=== PATIENT | female | born 1940 | race Caucasian/White ===

== ENCOUNTER → 2016-11-02 | Outpatient (CLI) | payer MEDICARE, OTHER | LOC: RAD 09:07 | PROVIDERS: ATTEND Surgery | DX: R13.10 Dysphagia, unspecified (principal) | CPT/HCPCS: 74220 ==

== ENCOUNTER 2016-11-07 06:51 | Day surgery (SDC) | payer MEDICARE, OTHER ==
[2016-11-07] VITALS (9 sets, daily range): BP systolic 165–197; BP diastolic 71–108
[~2016-11-07] VITALS: Ht 152.4 cm; Wt 65.0 kg
[~2016-11-07 06:51] MED LIST: LACTATED RINGERS 1,000 ML IV SCH; SODIUM CHLORIDE FLUSH 3 ML SYR IV PRN
[2016-11-07] MEDS ORDERED: SIMETHICONE 40 MG/0.6 ML (MYLICON DROPS) ORAL SYRINGE ONE (06:54)
[2016-11-07] MEDS ORDERED: LIDOCAINE 4% TOPICAL 4.5 ML SYR ONE (06:54)
[2016-11-07] MEDS ORDERED: ALFENTANIL 500 MCG/ML (ALFENTA) 5 ML AMP IV ONE (08:03)
[2016-11-07] MEDS ORDERED: LIDOCAINE 2% BOLUS 100 MG/5 ML (XYLOCAINE) SYRINGE ONE (08:03)
[2016-11-07] MEDS ORDERED: MIDAZOLAM 2 MG/2 ML (VERSED) VIAL ONE (08:03)
[2016-11-07] MEDS ORDERED: PROPOFOL 20 ML IV ONE (08:03)
[2016-11-07] MEDS ORDERED: lisINopril 40 MG (PRINIVIL) TABLET PO ONE (09:25)
--- NOTE | 2016-11-07 09:35 | NUR ---
ELEVATED BLOOD PRESSURE REPORTED TO Marcus ARNOLD CRNA. ZACHARIAH INFORMED THAT PATIENT TAKES AM BLOOD PRESSURE MEDICATIONS AT HOME. NEW ORDER RECEIVED. SEE EMAR.
== END 2016-11-07 11:37 | disposition home or self-care (01) ==
LOC: ASC 06:51
PROVIDERS: ATTEND Surgery
DX: R13.19 Other dysphagia (principal)
CPT/HCPCS: 43239; 88305; 88312; A9270; J2250; J7120

== ENCOUNTER → 2016-11-23 | Outpatient (CLI) | payer MEDICARE, OTHER ==
[~2016-11-23] MED LIST changes: -LACTATED RINGERS 1,000 ML IV SCH; -SODIUM CHLORIDE FLUSH 3 ML SYR IV PRN; +methylPREDNISolone 80 MG/ML (DEPO MEDROL) VIAL IM ONE
== END ==
LOC: PMC 11:52
PROVIDERS: ATTEND Family Medicine
PROC: 3E0R33Z Introduction of Anti-inflammatory into Spinal Canal, Percutaneous Approach (ICD-10-PCS; principal; 2016-11-23)
DX: M54.6 Pain in thoracic spine (principal)

== ENCOUNTER → 2016-12-12 | Outpatient (CLI) | payer MEDICARE, OTHER | LOC: LAB 14:44 | PROVIDERS: ATTEND Family Medicine | DX: E03.8 Other specified hypothyroidism (principal) | CPT/HCPCS: 36415; 84443 ==

== ENCOUNTER → 2017-01-22 | Outpatient (REF) | payer MEDICARE, OTHER ==
[~2017-01-22] MED LIST changes: +ALPR.25T PO; +ASPI-860 PO; +ATOR20TA PO; +BUSP10TA95 PO; +CHOL100048 PO; +CTLP20T PO; +FOSAMAX; +HYDR-3702 PO; +LAMO150T PO; +LEVO125T6 PO; +LORA1TAB PO; +MEMA10TA PO; +MIRT15TA98 PO; +MULT1CAP27 PO; +NF-LISIN40 PO; +OMEP20CA12 PO; +OXYC1TAB87 PO; -methylPREDNISolone 80 MG/ML (DEPO MEDROL) VIAL IM ONE
== END ==
LOC: LAB 13:55
PROVIDERS: ATTEND Nurse Practitioner Family
DX: R35.0 Frequency of micturition (principal)
CPT/HCPCS: 87088

== ENCOUNTER → 2017-01-22 | Outpatient (CLI) | payer MEDICARE, OTHER ==
--- NOTE | 2017-01-22 18:00 | Diagnostic Imaging Report ---
INDICATION: Left-sided back pain, osteoporosis. TECHNIQUE: Patient received 24.2 mCi technetium 99m MDP, whole body planar imaging then accomplished. COMPARISON: While I have no previous for direct comparison, the study can be interpreted in correlation with the thoracic spinal CT of July 17, 2016. FINDINGS: There is uptake associated with a treated chronic compression fracture at T7. Some mild uptake involving the T6 vertebral body immediately above with the prior CT showing a slight superior endplate concavity at that level. That injury may be subacute. The remaining levels appeared unremarkable. There are arthritic changes involving right greater than left hips, the bilateral knees, ankles, and shoulders. IMPRESSION: Uptake associated with the treated midthoracic compression deformity as well as some mild uptake at the level immediately above which showed slight superior endplate concavity on earlier CT. This level is untreated and may reflect a subacute fracture. Otherwise, arthritic changes in the spine and long bones noted. No appreciable rib fracture. Dictated by: Dictated on workstation # [id number]
== END ==
LOC: RAD 11:04
PROVIDERS: ATTEND Family Medicine
DX: M81.0 Age-related osteoporosis without current pathological fracture (principal); M54.6 Pain in thoracic spine
CPT/HCPCS: 78306; A9503

== ENCOUNTER 2017-02-25 11:06 | Emergency (ER) | payer MEDICARE, OTHER ==
[~2017-02-25] VITALS: Ht 152.4 cm; Wt 67.5 kg
--- NOTE | 2017-02-25 12:35 | Diagnostic Imaging Report ---
INDICATION: Cough and weakness for one week. FINDINGS: Frontal and lateral views of the chest demonstrates the lungs to be clear. The heart size and vascularity are normal. There is calcification of the aorta. Previous kyphoplasty changes are present. IMPRESSION: There are no acute findings. Dictated by: Dictated on workstation # [id number]
[2017-02-25 13:06] LABS: BASOPHILS % (AUTO) 1 % (0-2); EOSINOPHILS # (AUTO) 0.4 10^3uL; EOSINOPHILS % (AUTO) 4 % (0-4); LYMPHOCYTES # (AUTO) 1.9 X10^3; MEAN CORPUSCULAR HEMOGLOBIN 28.2 PG (26.0-34.0); MEAN CORPUSCULAR HGB CONC 34.8 g/dL (31.0-37.0); MEAN CORPUSCULAR VOLUME 81 FL (80-100); MEAN PLATELET VOLUME 10.3 FL (6.0-9.5); MONOCYTES # (AUTO) 0.6 X10^3; MONOCYTES % (AUTO) 5 % (3-11); NEUTROPHILS # (AUTO) 7.6 X10^3; NEUTROPHILS % (AUTO) 71 % (51-67); PLATELET COUNT 263 10^3uL (150-450); WHITE BLOOD COUNT 10.57 10^3uL (4.0-11.0)
[2017-02-25 13:09] LABS: BILIRUBIN,URINE Negative (Negative); CLARITY,URINE Clear; COLOR,URINE Yellow; GLUCOSE, URINE (UA) Negative (Negative); LEUKOCYTE ESTERASE ,URINE 2+ (Negative); PH,URINE 5.5 (5.0 - 8.0); UROBILINOGEN,URINE 0.2 mg/dL (0.2-1.0)
[2017-02-25 13:18] LABS: ALBUMIN 4.1 g/dL (3.4-5.0); ALKALINE PHOSPHATASE 149 U/L (38-126); ANION GAP 12.2 MEQ/L (3-15); BUN/CREATININE RATIO 21 (10-20); CALCULATED IONIZED CALCIUM 4.1 mg/dL (3.8-4.6); CREATINE KINASE 41 U/L (30-135); TOTAL PROTEIN 7.2 g/dL (6.4-8.5)
[2017-02-25 13:18] LABS: CALCIUM OXALATE CRYSTALS,UR 4+ /HPF; RBC,URINE 0-2 /HPF; URINE CENTRIFUGED VOLUME 12 mL
[2017-02-25] MEDS: ALBUTEROL 0.083% NEB SOLUTION 2.5 MG/3 ML VIAL INH ONE (13:28)
[2017-02-25 13:44] LABS: INFLUENZA VIRUS TYPE A ANTIBOD Negative (NEGATIVE); INFLUENZA VIRUS TYPE B ANTIBOD Negative (NEGATIVE)
[2017-02-25] MEDS: predniSONE 20 MG (DELTASONE) TABLET PO ONE (14:14)
[2017-02-25] MEDS: ED- ALBUTEROL HFA (VENTOLIN HFA) 8 GM INHALER IH ONE (14:16)
[2017-02-25] MEDS ORDERED: LEVO500T16 PO (14:30)
[2017-02-25] MEDS ORDERED: PRED20TA PO (14:30)
[2017-02-25] MEDS ORDERED: PRCD5U PO (14:30)
[2017-02-25 14:44] VITALS: BP 125/51
== END 2017-02-25 14:45 | disposition home or self-care (01) ==
LOC: ED 11:07
DX: J20.9 Acute bronchitis, unspecified (principal); N39.0 Urinary tract infection, site not specified; I10 Essential (primary) hypertension; Z87.891 Personal history of nicotine dependence
CPT/HCPCS: 36415; 71020; 80053; 81003; 81015; 82550; 82553; 83880; 84443; 84484; 85025; 86140; 87088; 87502; 94640; 94664; 99283; A9270; J7613